=== PATIENT | male | born 1985 | race African-American/Black ===

== ENCOUNTER 2022-09-12 22:47 | Emergency (ER) | payer SELFPAY ==
[2022-09-12 23:44] LABS: #Lymphocytes 0.4 thou/uL (1.20-3.40); #Monocytes 0.3 thou/uL (0.11-0.59); %Basophils 0.4 % (0.0-1.0); %Eosinophils 0.6 % (0.0-10.0); %Lymphocytes 11.2 % (21.0-51.0); %Neutrophils 79.8 % (42.0-75.0); Hemoglobin 14.9 g/dL (14.0-18.0); Mean Corpuscular HGB CONC 34.6 g/dL (32.0-36.0); Mean Corpuscular Hemoglobin 32.5 pg (27.0-31.0); Mean Corpuscular Volume 94.1 fl (78.0-98.0); Mean Platelet Volume 8.1 fL (7.4-10.4); Platelet Count 191 10x3/uL (130-400); RBC Distribution Width 11.2 % (11.5-14.5); Red Blood Cell (RBC) Count 4.56 mill/uL (4.70-6.10); White Blood Cell (WBC) Count 3.7 10x3/uL (4.8-10.8)
[2022-09-13 00:06] LABS: ALT (SGPT) 15 U/L (8-55); AST (SGOT) 18 U/L (5-34); Albumin 4.4 g/dL (3.5-5.0); Alkaline Phosphatase 62 U/L (40-110); Anion Gap 14 mmol/L (10-20); BUN (Urea Nitrogen) 13 mg/dL (8.9-20.6); Bilirubin, Total 0.5 mg/dL (0.2-1.2); Calc. Creatinine Clearance 0 mL/min (70-130); Calcium 9.1 mg/dL (7.8-10.44); Carbon Dioxide 25 mmol/L (22-29); Chloride 103 mmol/L (98-107); Estimated GFR 72; Globulin 3.2 g/dL (2.4-3.5); Glucose 88 mg/dL (70-105); Lipase 20 U/L (8-78); Potassium 3.9 mmol/L (3.5-5.1); Protein, Total 7.6 g/dL (6.0-8.3); Sodium 138 mmol/L (136-145)
[2022-09-13] MEDS ORDERED: Ketorolac Tromethamine 30 MG/ML VIAL ONE (00:10)
[2022-09-13] MEDS ORDERED: Acetaminophen 500 MG TAB ONE (00:11)
[2022-09-13 00:58] LABS: SARS-CoV-2 NAA Rapid Test Not Detected (NotDetected)
== END 2022-09-13 02:04 | disposition home or self-care (01) ==
LOC: ERS 22:47
DX: J10.1 Influenza due to other identified influenza virus with other respiratory manifestations (principal); D72.819 Decreased white blood cell count, unspecified; F17.210 Nicotine dependence, cigarettes, uncomplicated; Z20.822 Contact with and (suspected) exposure to COVID-19
CPT/HCPCS: 36415; 71045; 80053; 83690; 84484; 85025; 85379; 93005; 94760; 96374; J1885